=== PATIENT | male | born 1995 | race Two or more races ===

== ENCOUNTER 2017-10-02 06:38 | Emergency (ER) | payer OTHER ==
--- NOTE | 2017-10-02 07:04 | EDM.PDOC ---
ED HPI GENERAL MEDICAL PROBLEM - General Chief Complaint: Lower Extremity Injury/Pain Stated Complaint: RT KNEE PAIN Time Seen by Provider: 10/02/17 06:57 Source of Information: Reports: Patient History Limitations: Reports: No Limitations - History of Present Illness INITIAL COMMENTS - FREE TEXT/NARRATIVE: The patient presents with right knee pain. He said he slipped on the ice last night and fell and his knee flexed and went behind him. He can walk but it does hurt when he puts weight on it. His knee does not feel unstable and it does not lock. He has edema and that has restricted his motion. He has a history of juvenile rheumatoid arthritis. Onset: Sudden Duration: Day(s): (Last night) Location: Reports: Lower Extremity, Right (Knee) Quality: Reports: Sharp Severity: Moderate Improves with: Reports: None Worsens with: Reports: None Context: Reports: Activity (Walking) Associated Symptoms: Reports: No Other Symptoms Right Knee Pain Score (Numeric/FACES): 7 - Related Data Allergies Allergy/AdvReac Type Severity Reaction Status Date / Time No Known Allergies Allergy Verified 10/02/17 06:51 Home Meds: Home Meds Albuterol [IJD: Albuterol HFA] 1 puff INH DAILY PRN 10/02/17 [History] Past Medical History Respiratory History: Reports: Asthma Musculoskeletal History: Reports: RA Social & Family History - Tobacco Use Smoking Status *Q: Never Smoker - Recreational Drug Use Recreational Drug Use: No Review of Systems - Review of Systems Review Of Systems: See Below Constitutional: Reports: No Symptoms Eyes: Reports: No Symptoms Ears: Reports: No Symptoms Nose: Reports: No Symptoms Mouth/Throat: Reports: No Symptoms Respiratory: Reports: No Symptoms Cardiovascular: Reports: No Symptoms GI/Abdominal: Reports: No Symptoms Genitourinary: Reports: No Symptoms Musculoskeletal: Reports: Other (Right knee orozco and edema) ED EXAM, GENERAL - Physical Exam Exam: See Below Exam Limited By: No Limitations General Appearance: Alert, No Apparent Distress Ears: Normal External Exam Nose: Normal Inspection Head: Atraumatic, Normocephalic Neck: Normal Inspection Respiratory/Chest: No Respiratory Distress Extremities: Other (Moderate edema to the right knee. Good sensation and pulses distally. Ligaments and tendons appear intact. He can lift his left off the bed.) Course - Vital Signs Last Recorded V/S: Last Vital Signs Temp 97.6 F 10/02/17 06:45 Pulse 97 10/02/17 06:45 Resp 16 10/02/17 06:45 BP 138/92 H 10/02/17 06:45 Pulse Ox 98 10/02/17 06:45 - Orders/Labs/Meds Orders: Active Orders 24 hr Category Date Time Status Knee Min 4V Rt [CR] Stat Exams 10/02/17 07:00 Taken - Re-Assessments/Exams Free Text/Narrative Re-Assessment/Exam: 10/02/17 07:53 His x-ray looks good. I do not see anything acute. I will put him in a knee immobilizer and have him take ibuprofen. I will have him follow up with Dr Ardon. Departure - Departure Time of Disposition: 08:00 Disposition: Home, Self-Care 01 Condition: Good Clinical Impression: Sprain of right knee Qualifiers: Encounter type: initial encounter Involved ligament of knee: unspecified ligament Qualified Code(s): S83.91XA - Sprain of unspecified site of right knee , initial encounter - Discharge Information Instructions: Knee Immobilizer, [id number], Knee Sprain, [id number] Referrals: PCP,None [Primary Care Provider] - Raheel Ardon MD [Physician] - 1 Week Forms: ED Department Discharge, ED Return to Work/School Form Additional Instructions: Ice your knee for 15 minutes every other hour while awake for 2 days. Elevate your leg above your heart as much as you can for 2 days. Wear the knee immobilizer for comfort. Follow up with Dr Ardon within a week. Please return if you are worse. - My Orders Last 24 Hours: My Active Orders 10/02/17 07:00 Knee Min 4V Rt [CR] Stat - Assessment/Plan Last 24 Hours: My Active Orders 10/02/17 07:00 Knee Min 4V Rt [CR] Stat
--- NOTE | 2017-10-02 10:28 | CR ---
Right knee: Four views of the right knee were obtained. Comparison: No prior study. Joint space narrowing seen within the medial and lateral joints. Joint effusion is identified. Bony structures show no discrete fracture or dislocation. Impression: 1. Medial and lateral joint space narrowing. 2. Joint effusion. Diagnostic code #3
== END 2017-10-02 08:19 | disposition home or self-care (01) ==
LOC: JD.ED 06:38
DX: S83.91XA Sprain of unspecified site of right knee, initial encounter (principal); W00.0XXA Fall on same level due to ice and snow, initial encounter
CPT/HCPCS: 73564-26-RT; 73564-RT; 99283